=== PATIENT | female | born 1970 | race Two or more races ===

== ENCOUNTER → 2020-07-16 | Emergency (ER) | payer MEDICAID ==
[~2020-07-16] VITALS: Ht 165.1 cm; Wt 127.0 kg
[~2020-07-16] MED LIST: ALUM & MAG HYDROX-SIMETH LIQ(MAALOX) 30 ML PO ONE; DONNATAL 5ml ORAL Elix (BELLADONNA ALK-PHENOBARB) PO ONE; KETOROLAC TROMETH 30 MG/ML 1ML VIAL IV ONE; LIDOCAINE VISCOUS 2% 15ML UD PO ONE; SODIUM CHLORIDE 0.9% 1,000 ML IV ONE; TAMSULOSIN HYDROCHLORIDE 0.4 MG CAP PO ONE
[2020-07-16 11:35] LABS: Basophils # (auto) 0.1 10 ^3/uL (0-0.2); Basophils % (auto) 0.5 % (0.0-2.0); Eosinophils # (auto) 0 10 ^3/uL (0-0.8); Eosinophils % (auto) 0.1 % (0.0-7.0); Hematocrit 46.1 % (36.0-46.0); Hemoglobin 15.7 g/dL (12.2-16.2); Lymphocytes # (auto) 1.5 10 ^3/uL (0.4-5.4); Lymphocytes % (auto) 12.9 % (10.0-50.0); Mean Corpuscular Hemoglobin 29.9 pg (28.0-32.0); Mean Corpuscular Hgb Conc. 34.1 g/dL (32.0-36.0); Mean Corpuscular Volume 87.6 fL (80.0-100.0); Monocytes # (auto) 0.2 10 ^3/uL (0-1.3); Monocytes % (auto) 1.9 % (0.0-12.0); Neutrophils # (auto) 10.1 10 ^3/uL (1.6-8.6); Neutrophils % (auto) 84.6 % (37.0-80.0); Platelet Count (auto) 263 10^3/uL (140-450); Red Blood Cells 5.27 10^6/uL (4.0-5.20); Red Cell Distribution Width 14.7 % (11.8-14.3); White Blood Cell 11.9 10^3/uL (4.4-10.8)
[2020-07-16 11:52] LABS: Albumin 3.8 g/dL (3.4-5.0); Amylase 28 U/L (25-115); Anion Gap 8 (5-15); Blood Urea Nitrogen 12 mg/dL (7-18); Calcium 9.5 mg/dL (8.5-10.1); Carbon Dioxide 20 mmol/L (21-32); Chloride 110 mmol/L (98-107); Glucose 140 mg/dL (74-106); Lipase 79 U/L (73-393); Magnesium 1.9 mg/dL (1.6-2.6); Potassium 4.3 mmol/L (3.5-5.1); Sodium 138 mmol/L (136-145)
[2020-07-16 11:59] LABS: Alanine Aminotransferase 25 U/L (13-56); Alkaline Phosphatase 90 U/L (45-117); Aspartate Aminotransferase 17 U/L (15-37); BUN/Creatinine Ratio 12.4; Bilirubin, Total 0.8 mg/dL (0.2-1.0); GFR African American 78 mL/min; GFR Non-African American 65 mL/min; Total Protein 8.2 g/dL (6.4-8.2)
[2020-07-16 13:18] LABS: Urine Bacteria FEW /hpf (None Seen); Urine Blood Negative /uL (Negative); Urine Mucus FEW (None Seen); Urine Specific Gravity 1.028 (1.001-1.035); Urine WBC 1 /hpf (0 - 5)
[2020-07-16 13:51] VITALS: BP 111/47
== END | disposition home or self-care (01) ==
LOC: EDUNIT# 10:59 → EDBD 11:08 → ER 11:08
DX: N20.0 Calculus of kidney (principal); F17.210 Nicotine dependence, cigarettes, uncomplicated
CPT/HCPCS: 36415; 74176; 80053; 81001; 82150; 83690; 83735; 84484; 85025; 93005; 96361; 96374; 99285; J1885; J7030

== ENCOUNTER 2021-01-16 07:27 | Emergency (ER) | payer MEDICAID ==
[~2021-01-16] VITALS: Ht 172.7 cm; Wt 98.0 kg
[2021-01-16] MEDS ORDERED: METOCLOPRAMIDE HCL 5MG/ml INJ 2ml VIAL IV ONE (07:45)
[2021-01-16] MEDS ORDERED: KETOROLAC TROMETH 30 MG/ML 1ML VIAL IV ONE (07:45)
[2021-01-16] MEDS ORDERED: KETOROLAC TROMETH 30 MG/ML 1ML VIAL ONE (07:47)
[2021-01-16] MEDS ORDERED: METOCLOPRAMIDE HCL 5MG/ml INJ 2ml VIAL ONE (07:47)
[2021-01-16 08:36] LABS: Basophils # (auto) 0.1 10 ^3/uL (0-0.2); Basophils % (auto) 0.6 % (0.0-2.0); Eosinophils # (auto) 0 10 ^3/uL (0-0.8); Eosinophils % (auto) 0.1 % (0.0-7.0); Hemoglobin 15.5 g/dL (12.2-16.2); Lymphocytes # (auto) 2.5 10 ^3/uL (0.4-5.4); Lymphocytes % (auto) 17.3 % (10.0-50.0); Mean Corpuscular Hemoglobin 29.5 pg (28.0-32.0); Mean Corpuscular Hgb Conc. 33.8 g/dL (32.0-36.0); Mean Corpuscular Volume 87.4 fL (80.0-100.0); Monocytes # (auto) 0.7 10 ^3/uL (0-1.3); Monocytes % (auto) 4.8 % (0.0-12.0); Neutrophils % (auto) 77.2 % (37.0-80.0); Red Blood Cells 5.27 10^6/uL (4.0-5.20); Red Cell Distribution Width 14.1 % (11.8-14.3); White Blood Cell 14.2 10^3/uL (4.4-10.8)
[2021-01-16] MEDS ORDERED: SODIUM CHLORIDE 0.9% 1,000 ML IV ONE (08:45)
[2021-01-16] MEDS ORDERED: SODIUM CHLORIDE 0.9% 500 ML IVB ONE (08:45)
[2021-01-16 08:53] LABS: Albumin 3.8 g/dL (3.4-5.0); Potassium 3.5 mmol/L (3.5-5.1)
[2021-01-16 08:56] LABS: Bilirubin, Total 1.5 mg/dL (0.2-1.0); Total Protein 8.1 g/dL (6.4-8.2)
[2021-01-16] MEDS ORDERED: MORPHINE SULFATE INJECTION 2 MG/ML SYRG ONE (09:14)
[2021-01-16] MEDS ORDERED: MORPHINE SULFATE INJECTION 2 MG/ML SYRG IV ONE ×2 (09:30→12:00)
[2021-01-16 10:59] LABS: Urine Bacteria FEW /hpf (None Seen); Urine Blood 2+ /uL (Negative); Urine Mucus MANY (None Seen); Urine Specific Gravity 1.041 (1.001-1.035); Urine WBC 7 /hpf (0 - 5)
[2021-01-16] MEDS ORDERED: ONDANSETRON HCL 4 MG/2 ML VIAL ONE (12:06)
[2021-01-16] MEDS ORDERED: ONDANSETRON HCL 4 MG/2 ML VIAL IV ONE (12:15)
[2021-01-16 15:52] VITALS: BP 144/51
== END 2021-01-16 15:52 | disposition home or self-care (01) ==
LOC: EDBD 07:27 → ER 07:27
DX: N20.1 Calculus of ureter (principal); N39.0 Urinary tract infection, site not specified; F17.210 Nicotine dependence, cigarettes, uncomplicated; F12.10 Cannabis abuse, uncomplicated; Z90.49 Acquired absence of other specified parts of digestive tract; Z98.51 Tubal ligation status
CPT/HCPCS: 36415; 74176; 80053; 81001; 83690; 83735; 85025; 93005; 96361; 96374; 96375; 96376; 99285; J1885; J2270; J2405; J2765; J7030; J7040

== ENCOUNTER 2022-11-17 11:09 | Inpatient (IN) | payer MEDICAID ==
[~2022-11-17] VITALS: Ht 167.6 cm; Wt 113.1 kg
[2022-11-17] MEDS ORDERED: ONDANSETRON HCL 4 MG/2 ML VIAL IV ONE (11:30)
[2022-11-17] MEDS ORDERED: SODIUM CHLORIDE 0.9% 1,000 ML IV ONE (11:30)
[2022-11-17] MEDS ORDERED: fentaNYL CITRATE 100 MCG/2 ML VL IV ONE ×2 (11:30→16:30)
[2022-11-17 11:49] LABS: Basophils # (auto) 0.1 10 ^3/uL (0-0.2); Basophils % (auto) 0.7 % (0.0-2.0); Eosinophils # (auto) 0.1 10 ^3/uL (0-0.8); Eosinophils % (auto) 0.9 % (0.0-7.0); Hematocrit 45.6 % (36.0-46.0); Hemoglobin 15.9 g/dL (12.2-16.2); Lymphocytes # (auto) 1.8 10 ^3/uL (0.4-5.4); Lymphocytes % (auto) 17.7 % (10.0-50.0); Mean Corpuscular Hemoglobin 30.4 pg (28.0-32.0); Mean Corpuscular Hgb Conc. 34.8 g/dL (32.0-36.0); Mean Corpuscular Volume 87.4 fL (80.0-100.0); Monocytes # (auto) 0.3 10 ^3/uL (0-1.3); Monocytes % (auto) 2.8 % (0.0-12.0); Neutrophils % (auto) 77.9 % (37.0-80.0); Red Blood Cells 5.22 10^6/uL (4.0-5.20); Red Cell Distribution Width 14.4 % (11.8-14.3); White Blood Cell 10.3 10^3/uL (4.4-10.8)
[2022-11-17 12:08] LABS: Urine Bacteria NONE SEEN /hpf (None Seen); Urine Blood TRACE /uL (Negative); Urine Mucus FEW (None Seen); Urine Specific Gravity 1.024 (1.001-1.035); Urine WBC 1 /hpf (0 - 5)
[2022-11-17 12:22] LABS: Lactic Acid w/Reflex 2.5 mmol/L (0.4-2.0)
[2022-11-17 12:23] LABS: Albumin 3.9 g/dL (3.4-5.0); Calcium 9.3 mg/dL (8.5-10.1)
[2022-11-17 12:27] LABS: BUN/Creatinine Ratio 15.3; Bilirubin, Total 0.6 mg/dL (0.2-1.0); Total Protein 7.5 g/dL (6.4-8.2)
[2022-11-17] MEDS ORDERED: HYDROmorphone HCL 2 MG/ML VL/or syr IV ONE (13:30)
[2022-11-17] MEDS ORDERED: METOCLOPRAMIDE HCL 5MG/ml INJ 2ml VIAL IV ONE (16:30)
[2022-11-17] MEDS ORDERED: KETOROLAC TROMETH 30 MG/ML 1ML VIAL IV PRN (18:00)
[2022-11-17] MEDS ORDERED: HYDROcodone-ACET 5/325MG TAB PO PRN (18:00)
[2022-11-17] MEDS ORDERED: PANTOPRAZOLE 40 MG/10 ML VIAL INJ IV ONE (18:00)
[2022-11-17] MEDS ORDERED: KETOROLAC TROMETH 30 MG/ML 1ML VIAL IV ONE (18:00)
[2022-11-17] MEDS ORDERED: ACETAMINOPHEN 325 MG TAB PO PRN (18:00)
[2022-11-17] MEDS: SODIUM CHLORIDE 0.9% 1,000 ML IV SCH (18:40)
[2022-11-17 18:49] LABS: Cholesterol 164 mg/dL (< 200); LDL Cholesterol 113 mg/dL (< 100); Triglycerides 100 mg/dL (< 150)
[2022-11-17 18:53] LABS: HDL Cholesterol 46 mg/dL (40-59)
[2022-11-18] MEDS: KETOROLAC TROMETH 30 MG/ML 1ML VIAL IV PRN ×4 (00:54→22:19)
[2022-11-18] MEDS: METOCLOPRAMIDE HCL 5MG/ml INJ 2ml VIAL IV PRN ×2 (00:54→07:04)
[2022-11-18] MEDS: hydrALAZINE HCL 20 MG/ML VL IV PRN (01:47)
[2022-11-18 01:51] VITALS: BP_SYST 186; BP_SYST 189; BP_DIAS 64
[2022-11-18 05:00] VITALS: BP 125/67
[2022-11-18 06:49] LABS: Basophils # (auto) 0 10 ^3/uL (0-0.2); Basophils % (auto) 0.3 % (0.0-2.0); Eosinophils # (auto) 0 10 ^3/uL (0-0.8); Eosinophils % (auto) 0.1 % (0.0-7.0); Hematocrit 40.6 % (36.0-46.0); Hemoglobin 13.8 g/dL (12.2-16.2); Lymphocytes # (auto) 2.6 10 ^3/uL (0.4-5.4); Lymphocytes % (auto) 27.1 % (10.0-50.0); Mean Corpuscular Hemoglobin 30.1 pg (28.0-32.0); Mean Corpuscular Hgb Conc. 34.1 g/dL (32.0-36.0); Mean Corpuscular Volume 88.3 fL (80.0-100.0); Monocytes # (auto) 0.5 10 ^3/uL (0-1.3); Monocytes % (auto) 5.1 % (0.0-12.0); Neutrophils # (auto) 6.5 10 ^3/uL (1.6-8.6); Neutrophils % (auto) 67.4 % (37.0-80.0); Red Cell Distribution Width 14.4 % (11.8-14.3); White Blood Cell 9.7 10^3/uL (4.4-10.8)
[2022-11-18 07:27] LABS: Albumin 3.3 g/dL (3.4-5.0); BUN/Creatinine Ratio 16.2; Bilirubin, Total 0.6 mg/dL (0.2-1.0); Calcium 8.3 mg/dL (8.5-10.1); Potassium 3.2 mmol/L (3.5-5.1); Total Protein 6.8 g/dL (6.4-8.2)
[2022-11-18 08:00] VITALS: BP 115/57
[2022-11-18] MEDS: SODIUM CHLORIDE 0.9% 1,000 ML IV SCH ×2 (08:45→20:40)
[2022-11-18] MEDS ORDERED: LEVO50TA7 PO (08:47)
[2022-11-18] MEDS ORDERED: PANT40TA2 PO (08:47)
[2022-11-18] MEDS ORDERED: PERCOT PO (08:47)
[2022-11-18] MEDS: PANTOPRAZOLE 40 MG/10 ML VIAL INJ IV SCH (10:11)
[2022-11-18] MEDS: ENOXAPARIN SOD 40 MG/0.4 ML SYRINGE SC SCH (10:12)
[2022-11-18 12:00] VITALS: BP 109/56
[2022-11-18] MEDS ORDERED: MANNITOL 20% SOLN 100 gm/500ml 200 ML IV ONE (15:30)
[2022-11-18 16:00] VITALS: BP 139/59
[2022-11-18] MEDS: METOCLOPRAMIDE HCL 5MG/ml INJ 2ml VIAL IV SCH (17:53)
[2022-11-18] MEDS: HYOSCYAMINE SULF 0.125 MG ODT TAB PO SCH (21:59)
[2022-11-18 22:00] VITALS: BP 155/76
[2022-11-18] MEDS: LACTULOSE 20Gm/30ML SOLN PO SCH (22:00)
[2022-11-19] MEDS: METOCLOPRAMIDE HCL 5MG/ml INJ 2ml VIAL IV SCH ×2 (00:41→05:02)
[2022-11-19 05:00] VITALS: BP 168/71
[2022-11-19] MEDS: hydrALAZINE HCL 20 MG/ML VL IV PRN (05:02)
[2022-11-19] MEDS: HYOSCYAMINE SULF 0.125 MG ODT TAB PO SCH ×3 (05:02→23:14)
[2022-11-19] MEDS: KETOROLAC TROMETH 30 MG/ML 1ML VIAL IV PRN (05:02)
[2022-11-19 06:06] LABS: Basophils # (auto) 0 10 ^3/uL (0-0.2); Basophils % (auto) 0.5 % (0.0-2.0); Eosinophils # (auto) 0.1 10 ^3/uL (0-0.8); Hematocrit 43.3 % (36.0-46.0); Hemoglobin 14.5 g/dL (12.2-16.2); Lymphocytes # (auto) 3.9 10 ^3/uL (0.4-5.4); Lymphocytes % (auto) 39.7 % (10.0-50.0); Mean Corpuscular Hemoglobin 30.3 pg (28.0-32.0); Mean Corpuscular Hgb Conc. 33.6 g/dL (32.0-36.0); Mean Corpuscular Volume 90.3 fL (80.0-100.0); Monocytes # (auto) 0.6 10 ^3/uL (0-1.3); Monocytes % (auto) 6.2 % (0.0-12.0); Neutrophils # (auto) 5.2 10 ^3/uL (1.6-8.6); Neutrophils % (auto) 52.6 % (37.0-80.0); Nucleated Red Blood Cells % 0.1 %; Red Blood Cells 4.79 10^6/uL (4.0-5.20); Red Cell Distribution Width 14.6 % (11.8-14.3); White Blood Cell 9.9 10^3/uL (4.4-10.8)
[2022-11-19 06:28] LABS: Potassium 3.7 mmol/L (3.5-5.1)
[2022-11-19 06:32] LABS: BUN/Creatinine Ratio 11.1; Calcium 9.1 mg/dL (8.5-10.1)
[2022-11-19] MEDS ORDERED: OXYCODONE W/ ACETAMINOPHEN 5/325MG TABLET PO PRN (08:45)
[2022-11-19 09:00] VITALS: BP 137/58
[2022-11-19] MEDS: METOCLOPRAMIDE HCL 5MG/ml INJ 2ml VIAL IV PRN (09:08)
[2022-11-19] MEDS: MORPHINE SULFATE 4 MG/ML SYR/VIAL IV PRN ×4 (09:08→23:30)
[2022-11-19] MEDS: LACTULOSE 20Gm/30ML SOLN PO SCH ×2 (10:10→23:15)
[2022-11-19] MEDS: PANTOPRAZOLE 40 MG/10 ML VIAL INJ IV SCH (10:10)
[2022-11-19] MEDS: ENOXAPARIN SOD 40 MG/0.4 ML SYRINGE SC SCH (10:10)
[2022-11-19] MEDS: SODIUM CHLORIDE 0.9% 1,000 ML IV SCH ×2 (10:11→23:15)
[2022-11-19] MEDS ORDERED: IOHEXOL 300 MG/ML 100ML BOTTLE IJ ONE (10:53)
[2022-11-19 13:00] VITALS: BP 161/82
[2022-11-19 17:00] VITALS: BP 178/85
[2022-11-19 22:00] VITALS: BP 148/74
[2022-11-20 05:00] VITALS: BP 138/72
[2022-11-20 05:37] LABS: Potassium 3.4 mmol/L (3.5-5.1)
[2022-11-20 05:44] LABS: Basophils # (auto) 0 10 ^3/uL (0-0.2); Basophils % (auto) 0.4 % (0.0-2.0); Eosinophils # (auto) 0.1 10 ^3/uL (0-0.8); Eosinophils % (auto) 0.9 % (0.0-7.0); Hematocrit 40.8 % (36.0-46.0); Hemoglobin 13.5 g/dL (12.2-16.2); Lymphocytes # (auto) 3.1 10 ^3/uL (0.4-5.4); Lymphocytes % (auto) 35.8 % (10.0-50.0); Mean Corpuscular Hemoglobin 30.1 pg (28.0-32.0); Mean Corpuscular Hgb Conc. 33.1 g/dL (32.0-36.0); Monocytes # (auto) 0.5 10 ^3/uL (0-1.3); Monocytes % (auto) 6.2 % (0.0-12.0); Neutrophils % (auto) 56.7 % (37.0-80.0); Nucleated Red Blood Cells % 0.1 %; Red Blood Cells 4.49 10^6/uL (4.0-5.20); Red Cell Distribution Width 14.3 % (11.8-14.3); White Blood Cell 8.8 10^3/uL (4.4-10.8)
[2022-11-20 05:46] LABS: BUN/Creatinine Ratio 10.6; Calcium 8.6 mg/dL (8.5-10.1)
[2022-11-20] MEDS: HYOSCYAMINE SULF 0.125 MG ODT TAB PO SCH ×3 (06:00→21:53)
[2022-11-20 06:09] LABS: Bilirubin, Total 0.8 mg/dL (0.2-1.0); Total Protein 6.3 g/dL (6.4-8.2)
[2022-11-20] MEDS: MORPHINE SULFATE 4 MG/ML SYR/VIAL IV PRN ×2 (07:55→21:55)
[2022-11-20] MEDS: METOCLOPRAMIDE HCL 5MG/ml INJ 2ml VIAL IV PRN ×2 (07:56→21:53)
[2022-11-20 09:00] VITALS: BP 159/84
[2022-11-20] MEDS: PANTOPRAZOLE 40 MG/10 ML VIAL INJ IV SCH (10:00)
[2022-11-20] MEDS: LACTULOSE 20Gm/30ML SOLN PO SCH ×2 (10:00→21:53)
[2022-11-20] MEDS ORDERED: IOHEXOL 300 MG/ML 100ML BOTTLE IJ ONE (11:04)
[2022-11-20] MEDS: ENOXAPARIN SOD 40 MG/0.4 ML SYRINGE SC SCH (11:54)
[2022-11-20 13:00] VITALS: BP 149/81
[2022-11-20] MEDS: SODIUM CHLORIDE 0.9% 1,000 ML IV SCH (16:24)
[2022-11-20 17:00] VITALS: BP 134/83
[2022-11-20 22:00] VITALS: BP 133/66
[2022-11-21] MEDS: SODIUM CHLORIDE 0.9% 1,000 ML IV SCH (02:00)
[2022-11-21 05:00] VITALS: BP 151/81
[2022-11-21] MEDS: HYOSCYAMINE SULF 0.125 MG ODT TAB PO SCH ×2 (05:48→14:08)
[2022-11-21] MEDS: PANTOPRAZOLE 40 MG/10 ML VIAL INJ IV SCH (08:09)
[2022-11-21] MEDS: LACTULOSE 20Gm/30ML SOLN PO SCH (08:09)
[2022-11-21] MEDS: MORPHINE SULFATE 4 MG/ML SYR/VIAL IV PRN ×2 (08:10→14:44)
[2022-11-21] MEDS: ENOXAPARIN SOD 40 MG/0.4 ML SYRINGE SC SCH (08:10)
[2022-11-21 09:06] VITALS: BP 165/79
[2022-11-21] MEDS ORDERED: IOHEXOL 300 MG/ML 100ML BOTTLE IJ ONE (12:28)
[2022-11-21 13:00] VITALS: BP 137/103
[2022-11-21] MEDS ORDERED: AML5T PO (16:25)
[2022-11-21] MEDS ORDERED: HYOS0.1289 PO (16:25)
[2022-11-21] MEDS ORDERED: PANT40TA2 PO (16:25)
[2022-11-21 16:45] VITALS: BP 153/73
[2022-11-21 18:00] VITALS: BP 153/73
== END 2022-11-21 19:40 | disposition home or self-care (01) | DRG 254 ==
LOC: EDBD 11:09 → ER 11:09 → TELE 17:50 → EAST 23:16
PROVIDERS: ADMIT Nurse Practitioner Family; ATTEND Hospitalist
DX: K58.1 Irritable bowel syndrome with constipation (principal); E66.01 Morbid (severe) obesity due to excess calories; Z20.822 Contact with and (suspected) exposure to COVID-19; N20.0 Calculus of kidney; K21.9 Gastro-esophageal reflux disease without esophagitis; Z68.41 Body mass index [BMI] 40.0-44.9, adult; G89.4 Chronic pain syndrome; F12.90 Cannabis use, unspecified, uncomplicated; Z90.49 Acquired absence of other specified parts of digestive tract; Z79.899 Other long term (current) drug therapy
CPT/HCPCS: 36415; 74176; 74177; 76856; 80048; 80053; 80061; 81001; 83036; 83605; 83690; 84443; 84484; 85025; 87426; 93005; 96361; 96374; 96375; C9113; G0378; J1885; J2405